=== PATIENT | female | born 1980 | race Caucasian/White ===

== ENCOUNTER 2016-04-18 05:57 | Inpatient (IN) | payer BC ==
[2016-04-17 12:12] VITALS: BMI 36.1
[2016-04-18] VITALS (13 sets, daily range): BP systolic 103–130; RESP 9–27; TEMP 97.5–98.2; Ht 160 cm; Wt 92.5 kg
[~2016-04-18] VITALS: Ht 160 cm; Wt 92.5 kg
[2016-04-18] MEDS ORDERED: LACT RINGERS 1,000 ML IV SCH ×2 (06:30→08:55)
[2016-04-18] MEDS ORDERED: CEFAZOLIN (LD/OB) 100 ML IV ONE (06:30)
[2016-04-18] MEDS ORDERED: FAMOTIDINE 20 MG INJ IV ONE (06:30)
[2016-04-18] MEDS ORDERED: LIDOCAINE 1% BUFFERED 1 ML SYR INTRADERM PRN (06:30)
[2016-04-18] MEDS ORDERED: METOCLOPRAMIDE 10 MG/2 ML VIAL IV PUSH ONE (06:30)
[2016-04-18] MEDS ORDERED: OXYCODONE 5 MG TAB PO PRN (06:55)
[2016-04-18] MEDS ORDERED: SALINE FLUSH 10 ML FLUSH PRN ×2 (06:55→08:55)
[2016-04-18] MEDS ORDERED: PROMETHAZINE 25 MG/ML VIAL IV PRN (06:55)
[2016-04-18] MEDS ORDERED: DILAUDID 1 MG/ML AMP IV PRN (06:55)
[2016-04-18] MEDS ORDERED: MORPHINE 4 MG/ML SYR IV PRN ×2 (06:55)
[2016-04-18] MEDS ORDERED: NALOXONE 0.4 MG/ML AMP IV PRN (06:55)
[2016-04-18] MEDS ORDERED: DIPHENHYDRAMINE 50 MG/ML VIAL IV PRN (06:55)
[2016-04-18] MEDS ORDERED: MORPHINE 2 MG/ML SYR IV PRN ×2 (06:55)
[2016-04-18] MEDS ORDERED: MEPERIDINE 25 MG/ML IV PRN (06:55)
[2016-04-18] MEDS ORDERED: BUTORPHANOL 1 MG/ML VIAL IV PRN (06:55)
[2016-04-18] MEDS ORDERED: ONDANSETRON 4 MG VIAL IV PRN ×3 (06:55→08:55)
[2016-04-18] MEDS ORDERED: MEASLES,MUMPS,RUBELLA VAC SUBQ.VACC ONE (08:55)
[2016-04-18] MEDS ORDERED: MAG HYDROX 30 ML UDC PO PRN (08:55)
[2016-04-18] MEDS ORDERED: TDaP 0.5 ML VIAL IM.VACC ONE (08:55)
[2016-04-18] MEDS ORDERED: OXYTOCIN 15 UNITS/250 ML NS 250 ML IV SCH (08:55)
[2016-04-18] MEDS: DOCUSATE SOD 100 MG CAP PO SCH (09:00)
[2016-04-18] MEDS ORDERED: PHENYLEPHRINE 10 MG/ML VIAL IV ONE (10:58)
[2016-04-18] MEDS: KETOROLAC 30 MG/ML VIAL IV SCH ×2 (11:10→18:01)
[2016-04-18] MEDS: SALINE FLUSH 10 ML FLUSH SCH ×2 (12:37→19:21)
[2016-04-18] MEDS: SODIUM CHLORIDE 0.9% FLUSH BAG 500 ML IV SCH (19:21)
[2016-04-18] MEDS: OXYCODONE/APAP 5/325 TAB PO PRN (22:05)
[2016-04-19] MEDS: KETOROLAC 30 MG/ML VIAL IV SCH (00:08)
[2016-04-19 02:20] VITALS: BP_SYST 102; RESP 16; TEMP 98.2
[2016-04-19 05:53] VITALS: BP_SYST 108; RESP 20; TEMP 98.4
[2016-04-19] MEDS ORDERED: Ibuprofen 600 MG TAB ONE (06:08)
[2016-04-19] MEDS: Ibuprofen 600 MG TAB PO PRN ×4 (06:11→23:54)
[2016-04-19] MEDS: OXYCODONE/APAP 5/325 TAB PO PRN ×4 (06:12→23:53)
[2016-04-19] MEDS: SALINE FLUSH 10 ML FLUSH SCH ×2 (08:00→20:00)
[2016-04-19] MEDS: DOCUSATE SOD 100 MG CAP PO SCH (08:45)
[2016-04-19 09:20] VITALS: BP_SYST 113; RESP 18; TEMP 98.2
[2016-04-19 17:40] VITALS: BP_SYST 107; RESP 16; TEMP 98.1
[2016-04-20 05:11] VITALS: BP_SYST 111; RESP 17; TEMP 98
[2016-04-20] MEDS: OXYCODONE/APAP 5/325 TAB PO PRN ×2 (05:30→11:58)
[2016-04-20] MEDS: Ibuprofen 600 MG TAB PO PRN ×2 (05:30→11:57)
[2016-04-20] MEDS: SODIUM CHLORIDE 0.9% FLUSH BAG 500 ML IV SCH (06:00)
[2016-04-20 09:34] VITALS: BP_SYST 99; RESP 14; TEMP 98
[2016-04-20] MEDS: DOCUSATE SOD 100 MG CAP PO SCH (11:56)
[2016-04-20 13:15] VITALS: BP_SYST 99; RESP 18; TEMP 98.5
[2016-04-20 13:18] VITALS: BP_SYST 99; RESP 18; TEMP 98.5
== END 2016-04-20 14:02 | disposition home or self-care (01) | DRG 766 ==
LOC: LD 05:57 → OB 13:05
PROVIDERS: ADMIT Obstetrics & Gynecology; ATTEND Obstetrics & Gynecology
PROC: 10D00Z1 Extraction of Products of Conception, Low, Open Approach (ICD-10-PCS; principal; 2016-04-18)
PROC: 10907ZC Drainage of Amniotic Fluid, Therapeutic from Products of Conception, Via Natural or Artificial Opening (ICD-10-PCS; 2016-04-18)
CPT/HCPCS: 82803; 85025; 86850; 86900; 86901